=== PATIENT | female | born 1990 | race Caucasian/White ===

== ENCOUNTER 2019-07-12 15:46 | Emergency (ER) | payer OTHER ==
[~2019-07-12] VITALS: Ht 152.4 cm; Wt 72.6 kg
[2019-07-12 16:00] VITALS: BP_SYST 128
--- NOTE | 2019-07-12 17:00 | NUR ---
PATIENT TO ER #[id number]
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
[2019-07-12 19:15] VITALS: BP_SYST 116
--- NOTE | 2019-07-12 19:15 | NUR ---
Patient given written and verbal discharge instructions and verbalizes understanding. ER MD discussed with patient the results and treatment provided. Patient in stable condition. ID arm band removed. No Rx given. Patient educated on pain management and to follow up with PMD. Pain Scale 0. Opportunity for questions provided and answered. Medication side effect fact sheet provided.
== END 2019-07-12 19:15 | disposition home or self-care (01) ==
LOC: SED 15:46
DX: O9A.211 Injury, poisoning and certain other consequences of external causes complicating pregnancy, first trimester (principal); S30.0XXA Contusion of lower back and pelvis, initial encounter; Z3A.01 Less than 8 weeks gestation of pregnancy; V40.9XXA Unspecified car occupant injured in collision with pedestrian or animal in traffic accident, initial encounter; Y92.413 State road as the place of occurrence of the external cause; Y93.89 Activity, other specified; Y99.8 Other external cause status
CPT/HCPCS: 76801; 76817; 81002; 81025; 99284; 99285

== ENCOUNTER 2019-07-17 19:51 | Emergency (ER) | payer OTHER ==
[~2019-07-17] VITALS: Ht 152.4 cm; Wt 77.1 kg
[2019-07-17 20:00] VITALS: BP_SYST 125
[2019-07-18] MEDS ORDERED: ACETAMINOPHEN 500 MG TABLET PO ONE (03:30)
[2019-07-18 03:56] VITALS: BP_SYST 125
== END 2019-07-18 03:56 | disposition home or self-care (01) ==
LOC: SED 19:51
DX: S46.911A Strain of unspecified muscle, fascia and tendon at shoulder and upper arm level, right arm, initial encounter (principal); V89.2XXA Person injured in unspecified motor-vehicle accident, traffic, initial encounter; Y93.89 Activity, other specified; Y92.89 Other specified places as the place of occurrence of the external cause; Y99.8 Other external cause status
CPT/HCPCS: 99282